=== PATIENT | female | born 1950 | race Caucasian/White ===

== ENCOUNTER → 2017-07-28 | Outpatient (CLI) | payer MEDICARE, BC ==
--- NOTE | 2017-07-28 10:02 | BD ---
EXAMINATION TYPE: MG DEXA axial skeleton. DATE OF EXAM: 07/28/2017 COMPARISON: 12/06/2013 CLINICAL HISTORY: 66-year-old female other specified disorder of bone structure Height: 61 IN Weight: 179 LBS FRAX RISK QUESTIONS: Alcohol (3 or more units per day): NO Family History (Parent hip fracture): NO Glucocorticoids (More than 3mos): NO (Ex: prednisone, prednisolone, methylprednisolone, dexamethasone, and hydrocortisone). History of Fracture in Adulthood: YES AGE 49 RT ANKLE Secondary Osteoporosis: 1. Type 1 Diabetes: NO 2. Hyperthyroidism: NO 3. Menopause before 45: NO 4. Malnutrition: NO 5. Chronic liver disease: NO Rheumatoid Arthritis: NO Current Tobacco Use: NO RISK FACTORS HISTORY OF: Active: YES Postmenopausal woman: AGE 52 MEDICATIONS: Additional Medications: CALCIUM, VIT D, COMBIGAN EYE DROPS EXAM MEASUREMENTS: Bone mineral densitometry was performed using the [employer] System. Bone mineral density as measured about the Lumbar spine is: ----- L1-L4(G/cm2): 1.082 T Score Values are as follows: ----- L2: -1.1 ----- L3: -1.1 ----- L4: -0.3 ----- L1-L4: -0.8 Bone mineral density has: Decreased -1.6% since study of: 12/06/2013 Bone mineral density about the R hip (g/cm2): 0.808 Bone mineral density about the L hip (g/cm2): 0.857 T Score values are as follows: -----R Neck: -1.7 -----L Neck: -1.3 -----R Total: -1.3 -----L Total: -0.3 Bone mineral density has: Decreased -3.4% since study of: 12/06/2013 IMPRESSION: Osteopenia (T Score between -2.5 and -1 as noted by T score values in the lumbar spine and both hips) . There is slightly increased risk of fracture and the patient may be considered for treatment. Re-Scre en 2-5 years. NOTE: T-SCORE=SD OF THE YOUNG ADULT MEAN.
--- NOTE | 2017-07-29 09:17 | MM ---
Reason for exam: screening (asymptomatic). Last mammogram was performed 1 year ago. History: Patient is postmenopausal. Benign right mammotome panel of the right breast, February 05, 2006. Physical Findings: A clinical breast exam by your physician is recommended on an annual basis and results should be correlated with mammographic findings. MG 3D Screening Mammo W/Cad Bilateral CC and MLO view(s) were taken. Prior study comparison: July 17, 2016, bilateral MG 3d screening mammo w/cad. July 11, 2015, bilateral MG screening mammo w CAD. There are scattered fibroglandular densities. Previous mammotome biopsy in the right breast. There is chronic nodularity in the right breast. Skin calcification lesion in the left upper aspect. ASSESSMENT: Benign, BI-RAD 2 RECOMMENDATION: Routine screening mammogram of both breasts in 1 year.
== END | disposition home or self-care (01) ==
LOC: RADMAMWWP 09:02
PROVIDERS: ATTEND Internal Medicine
DX: Z12.31 Encounter for screening mammogram for malignant neoplasm of breast (principal); M85.88 Other specified disorders of bone density and structure, other site
CPT/HCPCS: 77080; 77063; G0202

== ENCOUNTER → 2018-12-18 | Outpatient (CLI) | payer MEDICARE, OTHER ==
[2018-12-18 09:18] LABS: Basophils % (A) 1 %; Eosinophils # (A) 0.5 k/uL (0-0.7); Eosinophils % (A) 8 %; HCT 48.6 % (34.0-46.0); HGB 15.8 gm/dL (11.4-16.0); Lymphocytes # (A) 1.4 k/uL (1.0-4.8); Lymphocytes % (A) 21 %; MCH 28.6 pg (25.0-35.0); MCHC 32.4 g/dL (31.0-37.0); MCV 88.3 fL (80.0-100.0); Mean Platelet Volume 6.4; Monocytes # (A) 0.4 k/uL (0-1.0); Monocytes % (A) 6 %; Neutrophils % (A) 62 %; Platelet Count 296 k/uL (150-450); RBC 5.51 m/uL (3.80-5.40); RDW 12.8 % (11.5-15.5); WBC 6.5 k/uL (3.8-10.6)
[2018-12-18 18:37] LABS: Albumin 4.2 g/dL (3.80-4.90); Albumin/Globulin Ratio 1.91 (1.60-3.17); Anion Gap 10.8 mmol/L (4.00-12.00); Calcium 9.4 mg/dL (8.7-10.3); Carbon Dioxide 24.2 mmol/L (21.6-31.8); Globulin 2.2 g/dL (1.6-3.3); Potassium 4.7 mmol/L (3.5-5.5); Total Bilirubin 0.4 mg/dL (0.2-1.2); Total Protein 6.4 g/dL (6.2-8.2)
[2018-12-21 10:55] LABS: LDL Cholesterol,Calculated 122.8; VLDL Calculation 27.2
== END ==
LOC: LABWHC1 08:40
PROVIDERS: ATTEND Internal Medicine
DX: Z00.01 Encounter for general adult medical examination with abnormal findings (principal); Z13.220 Encounter for screening for lipoid disorders
CPT/HCPCS: 36415; 80053; 80061; 85025

== ENCOUNTER → 2019-01-26 | Outpatient (CLI) | payer MEDICARE ==
--- NOTE | 2019-01-26 13:54 | US ---
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 Baltazar plaque EXAM MEASUREMENTS: RIGHT: Peak Systolic Velocity (PSV) cm/sec ----- Right CCA: 83.3 ----- Right ICA: 66.5 ----- Right ECA: 96.4 ICA/CCA ratio: 0.8 RIGHT: End Diastole cm/sec ----- Right CCA: 19.4 ----- Right ICA: 22.5 ----- Right ECA: 14.6 LEFT: Peak Systolic Velocity (PSV) cm/sec ----- Left CCA: 80.6 ----- Left ICA: 60.5 ----- Left ECA: 84.1 ICA/CCA ratio: 0.8 LEFT: End Diastole cm/sec ----- Left CCA: 24.5 ----- Left ICA: 21.1 ----- Left ECA: 19.8 VERTEBRALS (direction of flow): Right Vertebral: Antegrade Left Vertebral: Antegrade Rhythm: Normal IMPRESSION: Bilateral intimal thickening, no elevated velocities, no significant stenosis. Criteria for Assigning % of Stenosis / Diameter reduction (Estimation based on the indirect measurements of the internal carotid artery velocities (ICA PSV). 1. Normal (no stenosis)=ICA PSV < 125 cm/s: ratio < 2.0: ICA EDV<40 cm/s. 2. Less than 50% stenosis=ICA PSV < 125 cm/s: ratio < 2.0: ICA EDV<40 cm/s. 3. 50 to 69% stenosis=ICA PSV of 125 to 230 cm/s: ration 2.0 ? 4.0: ICA EDV 40-100 cm/s. 4. Greater than 70% stenosis to near occlusion= ICA PSV > 230 cm/s: ratio > 4.0: ICA EDV > 100 cm/s. 5. Near occlusion= ICA PSV velocities may be low or undetectable: variable ratio and ICA EDV. 6. Total occlusion=unable to detect flow.
== END | disposition home or self-care (01) ==
LOC: RADUSWWP 13:15
PROVIDERS: ATTEND Internal Medicine
DX: I77.9 Disorder of arteries and arterioles, unspecified (principal); H34.213 Partial retinal artery occlusion, bilateral
CPT/HCPCS: 93880

== ENCOUNTER → 2020-03-28 | Outpatient (CLI) | payer MEDICARE ==
--- NOTE | 2020-03-30 08:18 | MM ---
Reason for exam: screening (asymptomatic). Last mammogram was performed 1 year and 2 months ago. History: Patient is postmenopausal and has history of other cancer at age 61. Benign right mammotome panel of the right breast, February 05, 2006. Physical Findings: A clinical breast exam by your physician is recommended on an annual basis and results should be correlated with mammographic findings. MG 3D Screening Mammo W/Cad Bilateral CC and MLO view(s) were taken. Prior study comparison: January 11, 2019, bilateral MG 3d screening mammo w/cad. July 28, 2017, bilateral MG 3d screening mammo w/cad. There are scattered fibroglandular densities. Benign appearing calcifications in the left breast. Previous mammotome biopsy in the right breast. There is chronic nodularity in the right breast. No significant changes when compared with prior studies. ASSESSMENT: Benign, BI-RAD 2 RECOMMENDATION: Routine screening mammogram of both breasts in 1 year.
== END | disposition home or self-care (01) ==
LOC: RADMAMWWP 15:10
PROVIDERS: ATTEND Internal Medicine
DX: Z12.31 Encounter for screening mammogram for malignant neoplasm of breast (principal)
CPT/HCPCS: 77063; 77067

== ENCOUNTER → 2020-10-23 | Outpatient (CLI) | payer MEDICARE | END | disposition home or self-care (01) | LOC: LABWHC1 11:50 | PROVIDERS: ATTEND Internal Medicine | DX: Z20.828 Contact with and (suspected) exposure to other viral communicable diseases (principal) | CPT/HCPCS: U0003; C9803 ==

== ENCOUNTER → 2021-04-02 | Outpatient (CLI) | payer MEDICARE ==
--- NOTE | 2021-04-04 14:59 | MM ---
Reason for exam: screening (asymptomatic). Last mammogram was performed 1 year ago. History: Patient is postmenopausal and has history of other cancer at age 61. Benign right mammotome panel of the right breast, February 05, 2006. Physical Findings: A clinical breast exam by your physician is recommended on an annual basis and results should be correlated with mammographic findings. MG 3D Screening Mammo W/Cad Bilateral CC and MLO view(s) were taken. Prior study comparison: March 28, 2020, bilateral MG 3d screening mammo w/cad. January 11, 2019, bilateral MG 3d screening mammo w/cad. There are scattered fibroglandular densities. No significant changes when compared with prior studies. ASSESSMENT: Benign, BI-RAD 2 RECOMMENDATION: Routine screening mammogram of both breasts in 1 year.
== END | disposition home or self-care (01) ==
LOC: RADMAMWWP 07:11
PROVIDERS: ATTEND Internal Medicine
DX: Z12.31 Encounter for screening mammogram for malignant neoplasm of breast (principal); Z78.0 Asymptomatic menopausal state
CPT/HCPCS: 77063; 77067

== ENCOUNTER → 2022-05-07 | Outpatient (CLI) | payer MEDICARE ==
--- NOTE | 2022-05-07 08:52 | BD ---
EXAMINATION TYPE: Axial Bone Density DATE OF EXAM: 05/07/2022 COMPARISON: 07.28.2017 CLINICAL HISTORY: 71 years year old Female. ICD-10 CODE: N95.8 MENOPAUSAL Height: 60.2 Weight: 182 FRAX RISK QUESTIONS: Glucocorticoids (More than 3mos): YES (Ex: prednisone, prednisolone, methylprednisolone, dexamethasone, and hydrocortisone). RISK FACTORS HISTORY OF: Postmenopausal woman: YES, AT AGE 51 Lost more than 2 inches in height since high school: YES Hyperparathyroidism: NO Adrenal Insufficiency: NO MEDICATIONS: Prednisone or other steroids: YES, ON AND OFF FOR ILLNESS Additional Medications: CALCUM AND VIT D, BP MEDS, REFLUX MEDS, STATIN FOR CHOLESTEROL Additional History: MIGRAINES, TOTAL HYST AT 54 YRS OLD, CHOLESTEROL, REFLUX, HYPERTENSION, EXAM MEASUREMENTS: Bone mineral densitometry was performed using the [employer] System. Bone mineral density as measured about the Lumbar spine is: ----- L1-L4(G/cm2): 1.064 T Score Values are as follows: ----- L1: -1.4 ----- L2: -1.9 ----- L3: -0.8 ----- L4: -0.1 ----- L1-L4: -1.0 Bone mineral density has: Decreased -1.7% since study of: 07.28.2017 Bone mineral density about the R hip (g/cm2): 0.850 Bone mineral density about the L hip (g/cm2): 0.918 T Score values are as follows: -----R Neck: -1.5 -----L Neck: -1.7 -----R Total: -1.3 -----L Total: -0.7 Bone mineral density has: Decreased -3.0% since study of: 07.28.2017 FRAX%s: The graph provided illustrates a 24.9% chance for a major osteoporotic fx and a 5.1% chance f or the hips probability for fx in 10 years time. IMPRESSION: Osteopenia (T Score between -2.5 and -1). There is slightly increased risk of fracture and the patient may be considered for treatment. Re-Screen 2-5 years. NOTE: T-SCORE=SD OF THE YOUNG ADULT MEAN.
--- NOTE | 2022-05-08 09:05 | MM ---
Reason for Exam: Screening (asymptomatic). Last mammogram was performed 1 year(s) and 1 month(s) ago. Patient History: Menarche at age 11. First Full-Term at age 21. Left ovary removed at age 54. Right ovary removed at age 54. Hysterectomy at age 54. Postmenopausal. Other cancer, age 61. 02/05/2006, Benign Core Biopsy on the right side. Risk Values: Janice 5 year model risk: 1.9%. NCI Lifetime model risk: 4.8%. Prior Study Comparison: 01/11/2019 Bilateral Screening Mammogram, [facility]. 03/28/2020 Bilateral Screening Mammogram, [facility]. 04/02/2021 Bilateral Screening Mammogram, [facility]. Tissue Density: The breast tissue is heterogeneously dense. This may lower the sensitivity of mammography. Findings: Analyzed By CAD. There is no suspicious group of microcalcifications or new suspicious mass in either breast. Overall Assessment: Negative, BI-RAD 1 Management: Screening Mammogram of both breasts in 1 year. A clinical breast exam by your physician is recommended on an annual basis and results should be correlated with mammographic findings. Electronically signed and approved by: Giles Newberry M.D. Radiologis
== END | disposition home or self-care (01) ==
LOC: RADMAMWWP 07:47
PROVIDERS: ATTEND Internal Medicine
DX: Z12.31 Encounter for screening mammogram for malignant neoplasm of breast (principal); N95.8 Other specified menopausal and perimenopausal disorders
CPT/HCPCS: 77063; 77067; 77080

== ENCOUNTER → 2023-06-30 | Outpatient (CLI) | payer MEDICARE ==
--- NOTE | 2023-07-01 09:49 | MM ---
Reason for Exam: Screening (asymptomatic). Last mammogram was performed 1 year(s) and 2 month(s) ago. Patient History: Menarche at age 11. First Full-Term at age 21. Left ovary removed at age 54. Right ovary removed at age 54. Hysterectomy at age 54. Postmenopausal. Other cancer, age 61. 02/05/2006, Benign Core Biopsy on the right side. Risk Values: Janice 5 year model risk: 1.9%. NCI Lifetime model risk: 4.6%. Prior Study Comparison: 03/28/2020 Bilateral Screening Mammogram, [facility]. 04/02/2021 Bilateral Screening Mammogram, [facility]. 05/07/2022 Bilateral MG 3D screening mammo w/cad, [facility]. Tissue Density: There are scattered fibroglandular densities. Findings: Analyzed By CAD. There is no suspicious group of microcalcifications or new suspicious mass in either breast. Overall Assessment: Negative, BI-RAD 1 Management: Screening Mammogram of both breasts in 1 year. . Patient should continue monthly self-breast exams. A clinical breast exam by your physician is recommended on an annual basis. This exam should not preclude additional follow-up of suspicious palpable abnormalities. Note on Janice scores and lifetime risk: 1. A Janice score greater than 3% is considered moderate risk. If this is the case, consider specialist referral to assess eligibility for a risk reducing agent. 2. If overall lifetime risk for the development of breast cancer is 20% or higher, the patient may qualify for future screening with alternating mammogram and breast MRI. Electronically signed and approved by: Giles Newberry M.D. Radiologis
== END | disposition home or self-care (01) ==
LOC: RADMAMWWP 08:37
PROVIDERS: ATTEND Internal Medicine
DX: Z12.31 Encounter for screening mammogram for malignant neoplasm of breast (principal); Z78.0 Asymptomatic menopausal state
CPT/HCPCS: 77063; 77067

== ENCOUNTER → 2024-03-24 | Outpatient (CLI) | payer MEDICARE ==
--- NOTE | 2024-03-24 17:24 | CA ---
Transthoracic Echo Report Name: Rosa Talbot Age: 73 Gender: F : 1950 Exam Date: 03/24/2024 14:26 Exam Location: [facility] Ht (in): 62 Wt (lb): 170 Ordering Physician: Laura Marie MD Attending/Referring Phys: Laura Marie MD Nursery Teacher Delfina Talbert, RD Procedure CPT: Indications: R01.1 CARDIAC MURMUR, UNSPECIFIED Cardiac Hx: Technical Quality: Fair Contrast 1: Total Dose (mL): Contrast 2: Total Dose (mL): MEASUREMENTS (Male / Female) Normal Values 2D ECHO LV Diastolic Diameter PLAX 4.3 cm 4.2 - 5.9 / 3.9 - 5.3 cm LV Systolic Diameter PLAX 2.0 cm IVS Diastolic Thickness 1.0 cm 0.6 - 1.0 / 0.6 - 0.9 cm LVPW Diastolic Thickness 1.2 cm 0.6 - 1.0 / 0.6 - 0.9 cm LV Relative Wall Thickness 0.5 RV Internal Dim ED PLAX 2.0 cm LVOT Diameter 1.7 cm LA Systolic Diameter LX 3.6 cm 3.0 - 4.0 / 2.7 - 3.8 cm LV Diastolic Volume MOD BP 45.5 cm??? 67 - 155 / 56 - 104 cm??? LV Systolic Volume MOD BP 17.7 cm??? 22 - 58 / 19 - 49 cm??? LV Ejection Fraction MOD BP 61.0 % >= 55 % LV Diastolic Volume MOD 4C 39.7 cm??? LV Systolic Volume MOD 4C 14.6 cm??? LV Ejection Fraction MOD 4C 63.3 % LV Diastolic Length 4C 6.8 cm LV Systolic Length 4C 5.6 cm LV Diastolic Volume MOD 2C 51.0 cm??? LV Systolic Volume MOD 2C 20.4 cm??? LV Ejection Fraction MOD 2C 60.1 % LV Diastolic Length 2C 7.0 cm LV Systolic Length 2C 6.1 cm LA Volume 48.8 cm??? 18 - 58 / 22 - 52 cm??? LA Volume Index 26.2 cm???/m??? 16 - 28 cm???/m??? M-MODE Aortic Root Diameter MM 2.7 cm LA Systolic Diameter MM 4.2 cm LA Ao Ratio MM 1.5 AV Cusp Separation MM 1.5 cm DOPPLER AV Peak Velocity 227.8 cm/s AV Peak Gradient 20.8 mmHg AV Mean Velocity 150.5 cm/s AV Mean Gradient 10.7 mmHg AV Velocity Time Integral 42.0 cm LVOT Peak Velocity 111.5 cm/s LVOT Peak Gradient 5.0 mmHg LVOT Velocity Time Integral 24.4 cm LVOT Stroke Volume 52.4 cm??? LVOT Stroke Volume Index 29.4 ml/m??? AV Area Cont Eq vti 1.2 cm??? AV Area Cont Eq pk 1.0 cm??? MV Area PHT 2.0 cm??? Mitral E Point Velocity 65.9 cm/s Mitral A Point Velocity 89.0 cm/s Mitral E to A Ratio 0.7 MV Deceleration Time 372.6 ms FINDINGS Left Ventricle Left ventricular ejection fraction is estimated at 55-60%. Mildly increased septal wall thickness. Mildly increased posterior wall thickness. Left ventricular cavity size normal. No obvious regional wall motion abnormalities. Right Ventricle Normal right ventricular size and function. Right ventricular systolic pressure within normal limits. Right Atrium Normal right atrial size. Left Atrium Normal left atrial size. Mitral Valve Structurally normal mitral valve. Trace mitral regurgitation. No mitral stenosis. Aortic Valve Trileaflet aortic valve. Mild aortic stenosis with a peak gradient of 20mmHg and a mean gradient of 10mmHg. No aortic regurgitation. Tricuspid Valve Structurally normal tricuspid valve. Trace tricuspid regurgitation. Pulmonic Valve Structurally normal pulmonic valve. No pulmonic stenosis. No pulmonic regurgitation. Pericardium No pericardial or pleural effusion. Aorta Normal size aortic root and proximal ascending aorta. CONCLUSIONS Normal LV function Mild aortic stenosis Previewed by: Dr. Chandana Fisher MD (Electronically Signed) Final Date: 24 March 2024 17:23
== END | disposition home or self-care (01) ==
LOC: RADECHMAIN 14:14
PROVIDERS: ATTEND Internal Medicine
DX: I35.0 Nonrheumatic aortic (valve) stenosis (principal)
CPT/HCPCS: 93306

== ENCOUNTER 2025-02-07 08:54 | Day surgery (SDC) | payer MEDICARE ==
[2025-02-07] MEDS ORDERED: LIDOCAINE 1% (10MG/ML) FOR IV START INTRADERMA PRN (09:08)
[2025-02-07 09:17] VITALS: TEMP 97.6
[2025-02-07] MEDS: IV FLUID CONTINUATION 1,000 ML IV ONE (09:23)
[2025-02-07] MEDS: LACTATED RINGERS 1,000 ML IV SCH (09:23)
[2025-02-07] MEDS ORDERED: PROPOFOL 10 MG/ML 20 ML VIAL IV ONE (09:57)
[2025-02-07] MEDS ORDERED: ATROPINE SULFATE 0.4 MG/ML 1 ML VIAL ONE (09:57)
--- NOTE | 2025-02-07 10:30 | P.PCN ---
Date of Procedure: 02/07/25 Preoperative Diagnosis: Positive Cologuard Postoperative Diagnosis: Diverticulosis Transverse colon polyp Somewhat poor preparation Procedure(s) Performed: Colonoscopy with hot snare polypectomy Anesthesia: MAC Surgeon: Barbie Gaines Pathology: other (Transverse colon polyp) Condition: stable Disposition: same day Indications for Procedure: 74-year-old female presents today for colonoscopy. She recently had a positive Cologuard. Denies any blood in her stool. Last colonoscopy was about 20 years ago Operative Findings: Transverse colon polyp Description of Procedure: The patient was brought to the endoscopy suite and placed in left lateral d ecubitus position and adequate sedation was achieved using conscious sedation. Digital rectal exam was performed and mild internal hemorrhoids were palpated. An endoscope was then placed in the rectum and advanced to the cecum as identified by landmarks including the appendiceal orifice and the ileocecal valve. The prep was somewhat poor with some solid stool noted in the distal colon. The colonoscope was then slowly withdrawn, examining for any mucosal abnormalities. The cecum, ascending, transverse, descending and sigmoid colon were visualized adequately. Pedunculated polyp was noted in the transverse colon. This was removed with hot snare polypectomy. Large amount of diverticulosis was noted in the sigmoid colon. Hemostasis was maintained. Retroflexion was performed in the rectum and internal hemorrhoid. Excess air was removed, the colonoscope withdrawn and the procedure terminated. The patient was then transferred to the recovery unit in stable condition. Repeat colonoscopy should be performed in 1 year due to somewhat poor preparation and finding of polyp.
[2025-02-07 10:42] VITALS: RESP 18
[2025-02-07 10:55] VITALS: BP 113/73; PULSE 77
== END 2025-02-07 11:13 | disposition home or self-care (01) ==
LOC: ORWHC2ENDO 08:54
PROVIDERS: ATTEND Surgery
DX: D12.3 Benign neoplasm of transverse colon (principal); K64.8 Other hemorrhoids; K57.30 Diverticulosis of large intestine without perforation or abscess without bleeding
CPT/HCPCS: 88305; 45385; J0461; J2704